=== PATIENT | female | born 1990 | race Caucasian/White ===

== ENCOUNTER 2019-03-01 09:49 | Emergency (ER) | payer MEDICAID ==
[~2019-03-01] VITALS: Ht 165.1 cm; Wt 82.6 kg
[2019-03-01 09:50] VITALS: BP_SYST 121
[2019-03-01] MEDS ORDERED: IBUPROFEN 800 MG TABLET PO ONE (10:30)
[2019-03-01 11:48] VITALS: BP_SYST 121
== END 2019-03-01 11:49 | disposition home or self-care (01) ==
LOC: SED 09:49
DX: M25.572 Pain in left ankle and joints of left foot (principal)
CPT/HCPCS: 99283